=== PATIENT | male | born 1985 | race American Indian/Alaskan Native ===

== ENCOUNTER 2016-11-24 08:26 | Emergency (ER) | payer SELFPAY ==
[2016-11-24 09:19] LABS: Basophils % (Auto) 0.3 % (0.0-1.8); Eosinophils % (Auto) 0.3 % (0.0-4.3); Hemoglobin 13.3 gm/dl (11.8-15.2); Mean Corpuscular HGB Conc 33 % (32-34); Mean Corpuscular Hemoglobin 30 pg (28-32); Mean Corpuscular Volume 93 fl (84-94); Platelet Count 261 K/mm3 (140-440); Red Blood Count 4.38 M/mm3 (3.65-5.03); Red Cell Distribution Width 15.2 % (13.2-15.2); White Blood Count 11.1 K/mm3 (4.5-11.0)
[2016-11-24 09:34] LABS: Anion Gap 19 mmol/L; Blood Urea Nitrogen 15 mg/dL (9-20); Calcium 8.8 mg/dL (8.4-10.2); Carbon Dioxide 26 mmol/L (22-30); Chloride 98.1 mmol/L (98-107); Glucose 97 mg/dL (75-100); Potassium 3.8 mmol/L (3.6-5.0); Sodium 139 mmol/L (137-145)
--- NOTE | 2016-11-24 10:11 | Emergency Department Report ---
HPI - General Chief Complaint: Psych Time Seen by Provider: 11/24/16 09:51 - HPI HPI: This is a 31-year-old -[place] male who presents to the emergency department by the [facility] [employer] with complaint of suicidal ideations. The patient has been off of his medications for about 1 month as he says they're too expensive. More recently he has been hearing some voices telling him to hurt himself. Patient says that his plan would be to walk out in front of traffic but he did not want to do that so he called the police on himself. Patient says he has never been to an inpatient psych facility before. He has a past psych history of schizophrenia, bipolar disorder with psychotic tendencies. He is a tobacco smoker and admits to occasional methamphetamine use. He denies any current physical complaints. ED Past Medical Hx - Past Medical History Hx Hypertension: Yes Hx Psychiatric Treatment: Yes (schizo) - Social History Smoking Status: Never Smoker Substance Use Type: None - Medications Home Medications: Home Medications Medication Instructions Recorded Confirmed Last Taken Type ALPRAZolam [Xanax TAB] 0.25 mg PO Q8HR PRN 08/28/15 08/28/15 1 Month Ago History FLUoxetine [PROzac] 10 mg PO QDAY 08/28/15 08/28/15 1 Month Ago History risperiDONE [RisperDAL] 0.25 mg PO QDAY 08/28/15 08/28/15 1 Month Ago History ED Review of Systems ROS: Stated complaint: MH EVAL/WANTED TO COMMIT SUICIDE Other details as noted in HPI Comment: All other systems reviewed and negative Constitutional: denies: chills, fever Eyes: denies: eye pain, eye discharge, vision change ENT: denies: ear pain, throat pain Respiratory: denies: cough, shortness of breath, wheezing Cardiovascular: denies: chest pain, palpitations Gastrointestinal: denies: abdominal pain, nausea, diarrhea Genitourinary: denies: urgency, dysuria Musculoskeletal: denies: back pain, joint swelling, arthralgia Skin: denies: rash, lesions Neurological: denies: headache, weakness, paresthesias Psychiatric: depression, auditory hallucinations, suicidal thoughts. denies: visual hallucinations, homicidal thoughts Physical Exam - Physical Exam Vital Signs: Vital Signs 11/24/16 08:52 Temperature 98.9 F Pulse Rate 94 H Respiratory 18 Rate Blood Pressure 143/83 O2 Sat by Pulse 97 Oximetry Physical Exam: GENERAL: The patient is well-developed well-nourished. HEENT: Normocephalic. Atraumatic. Extraocular motions are intact. Patient has moist mucous membranes. Pupils equal reactive to light bilaterally. NECK: Supple. Trachea is midline. CHEST/LUNGS: Clear to auscultation. There is no respiratory distress noted. HEART/CARDIOVASCULAR: Regular. There is no tachycardia. There is no gallop rub or murmur. ABDOMEN: Abdomen is soft, nontender. Patient has normal bowel sounds. There is no abdominal distention. SKIN: There is no rash. There is no edema. There is no diaphoresis. NEURO: The patient is awake, alert, and oriented. The patient is cooperative. The patient has no focal neurologic deficits. The patient has normal speech. MUSCULOSKELETAL: There is no tenderness or deformity. There is no limitation range of motion. There is no evidence of acute injury. PSYCH: Patient currently calm and cooperative. Does admit to suicidal ideations. ED Course Vital Signs 11/24/16 08:52 Temperature 98.9 F Pulse Rate 94 H Respiratory 18 Rate Blood Pressure 143/83 O2 Sat by Pulse 97 Oximetry ED Medical Decision Making - Lab Data Result diagrams: 11/24/16 09:04 11/24/16 09:04 - Medical Decision Making 31-year-old male presents with suicidal ideations and some auditory hallucinations with a psychiatric history of schizophrenia, bipolar disorder and psychotic tendencies. Patient is a 1013 secondary to the suicidal ideations. Patient's labs have been unremarkable. No signs of infection, electrolytes upper maladies, renal insufficiency. No urinary tract infection. Blood alcohol level is negative. Urine drug screen should be coming back soon but the patient admits to history of methamphetamine and he is currently calm and does not appear to be acutely intoxicated. The crisis therapist team has been contacted for assistance and the patient will need inpatient psychiatric placement. Patient is medically cleared for psychiatric placement. - Differential Diagnosis different, bipolar disorder, substance abuse, schizoaffective Critical Care Time: No Critical care attestation.: If time is entered above; I have spent that time in minutes in the direct care of this critically ill patient, excluding procedure time. ED Disposition Clinical Impression: Suicidal ideations, Noncompliance with medication regimen Schizophrenia Qualifiers: Schizophrenia type: unspecified Qualified Code(s): F20.9 - Schizophrenia, unspecified Disposition: DC/TX PSY HOSP/PSY UNIT Is pt being admited?: No Condition: Stable Time of Disposition: 13:03
[2016-11-24 12:24] LABS: Urine Drugs of Abuse Note Disclamer
[2016-11-24 12:39] LABS: Bilirubin,Urine NEG (Negative); Blood,Urine MOD (Negative); Ketones,Urine 20 mg/dL (Negative); Leukocyte Esterase,Urine NEG (Negative); Mucus,Urine 1+ /HPF; Nitrite,Urine NEG (Negative); Protein,Urine <15 mg/dL mg/dL (Negative)
[2016-11-26 20:00] VITALS: BP 147/93
== END 2016-11-26 20:00 ==
LOC: EEVIPCON 08:26 → ED 08:26
DX: R45.851 Suicidal ideations (principal); F20.9 Schizophrenia, unspecified; Z91.14 Patient's other noncompliance with medication regimen; I10 Essential (primary) hypertension
CPT/HCPCS: 36415; 80048; 80307; 81001; 85025; 99285; G0480; 80320

== ENCOUNTER 2017-04-05 06:19 | Emergency (ER) | payer SELFPAY ==
[2017-04-05 06:45] VITALS: BP 132/96
[2017-04-05 07:20] LABS: Hematocrit 40.7 % (35.5-45.6); Hemoglobin 14.2 gm/dl (11.8-15.2); Mean Corpuscular HGB Conc 35 % (32-34); Mean Corpuscular Hemoglobin 32 pg (28-32); Mean Corpuscular Volume 92 fl (84-94); Platelet Count 237 K/mm3 (140-440); Red Blood Count 4.42 M/mm3 (3.65-5.03); Red Cell Distribution Width 14.3 % (13.2-15.2); White Blood Count 4.6 K/mm3 (4.5-11.0)
[2017-04-05 07:38] LABS: Anion Gap 18 mmol/L; BUN/Creatinine Ratio 6.92; Blood Urea Nitrogen 9 mg/dL (9-20); Calcium 9.3 mg/dL (8.4-10.2); Carbon Dioxide 27 mmol/L (22-30); Chloride 97.6 mmol/L (98-107); Glucose 92 mg/dL (75-100); Potassium 4.2 mmol/L (3.6-5.0); Sodium 138 mmol/L (137-145)
[2017-04-05 10:09] LABS: Basophils % (Manual) 0 % (0.0-1.8); Blastocytes % (Manual) 0 %
[2017-04-05 10:10] LABS: Diff Status Complete; RBC Morphology Normal
== END 2017-04-05 07:05 | disposition left against medical advice (07) ==
LOC: EEVIPCON 06:19 → ED 06:19
DX: R45.851 Suicidal ideations (principal); R45.850 Homicidal ideations; Z53.21 Procedure and treatment not carried out due to patient leaving prior to being seen by health care provider
CPT/HCPCS: 36415; 80048; 85007; 85025; G0480; 80320

== ENCOUNTER 2017-04-05 19:47 | Emergency (ER) | payer OTHER ==
[2017-04-05 21:06] LABS: Urine Drugs of Abuse Note Disclamer
[2017-04-05 21:15] LABS: Bilirubin,Urine NEG (Negative); Blood,Urine SM (Negative); Ketones,Urine NEG (Negative); Leukocyte Esterase,Urine NEG (Negative); Mucus,Urine FEW /HPF; Nitrite,Urine NEG (Negative); Protein,Urine <15 mg/dL mg/dL (Negative); Urobilinogen,Urine < 2.0 mg/dL (<2.0)
[2017-04-06 05:00] LABS: Basophils % (Auto) 0.5 % (0.0-1.8); Eosinophils % (Auto) 2.2 % (0.0-4.3); Hemoglobin 14.2 gm/dl (11.8-15.2); White Blood Count 5.2 K/mm3 (4.5-11.0)
[2017-04-06 05:08] LABS: Anion Gap 18 mmol/L; BUN/Creatinine Ratio 9.16; Blood Urea Nitrogen 11 mg/dL (9-20); Calcium 9.4 mg/dL (8.4-10.2); Carbon Dioxide 28 mmol/L (22-30); Chloride 93.6 mmol/L (98-107); Glucose 91 mg/dL (75-100); Sodium 136 mmol/L (137-145)
[2017-04-06 05:09] LABS: Diff Status Complete; Hematocrit 42.1 % (35.5-45.6); Mean Corpuscular HGB Conc 34 % (32-34); Mean Corpuscular Hemoglobin 31 pg (28-32); Mean Corpuscular Volume 92 fl (84-94); Platelet Count 231 K/mm3 (140-440); Red Blood Count 4.57 M/mm3 (3.65-5.03); Red Cell Distribution Width 14.1 % (13.2-15.2)
--- NOTE | 2017-04-06 05:28 | Emergency Department Report ---
HPI - General Chief Complaint: Psych Time Seen by Provider: 04/06/17 04:28 - HPI HPI: The patient is a 31-year-old male with a history of depression, home presents for evaluation of mental health. The patient reports constant and severe sadness and hopelessness for the past 24 hrs, exacerbated with drug use. He admits to suicidal ideations and a plan to run in front of a car. The patient denies fever, headache, unexplained weight loss or weight gain, heat or cold intolerance, skin, hair, or nail changes, neuro deficits, homicidal ideations, or auditory or visual hallucinations. ED Past Medical Hx - Past Medical History Previous Medical History?: Yes Hx Hypertension: Yes Hx Psychiatric Treatment: Yes (schizo) Additional medical history: schzophenia - Surgical History Past Surgical History?: No - Social History Smoking Status: Never Smoker Substance Use Type: None - Medications Home Medications: Home Medications Medication Instructions Recorded Confirmed Last Taken Type FLUoxetine [PROzac] 10 mg PO QDAY 08/28/15 11/24/16 11/23/16 History risperiDONE [RisperDAL] 0.25 mg PO QDAY 08/28/15 11/24/16 11/23/16 History ED Review of Systems ROS: Stated complaint: MED REFILL/MH Other details as noted in HPI Constitutional: denies: fever ENT: denies: throat or neck pain Respiratory: denies: cough, shortness of breath Cardiovascular: denies: chest pain Endocrine: denies unexplained weight loss or gain Gastrointestinal: denies: abdominal pain, nausea Genitourinary: denies: dysuria Musculoskeletal: denies: leg swelling Skin: denies: rash Neurological: denies: headache Hematological/Lymphatic: denies: easy bleeding or easy bruising Psych: reports sadness or hopelessness Physical Exam - Physical Exam Vital Signs: Vital Signs 04/05/17 04/06/17 04/06/17 20:22 00:36 02:00 Temperature 98.7 F 98.7 F 97.9 F Pulse Rate 101 H 86 85 Respiratory 18 18 20 Rate Blood Pressure 154/112 138/94 Blood Pressure 142/82 [Left] O2 Sat by Pulse 99 100 100 Oximetry 04/06/17 02:26 Temperature Pulse Rate Respiratory 20 Rate Blood Pressure Blood Pressure [Left] O2 Sat by Pulse 100 Oximetry Physical Exam: General: well-nourished, well-developed, no acute distress Head: Normocephalic, atraumatic Eyes: normal sclera ENT: Mucous membranes are pink and moist Neck: trachea midline, neck supple, No neck stiffness, no cervical adenopathy Respiratory: Breath sounds equal bilaterally, no wheezing, rales, or rhonchi Cardio: S1 and S2 present, no murmurs, rubs, gallops, capillary refill is brisk Abdomen: Normoactive bowel sounds, soft abdomen, no tenderness Chest WALL/Back: No tenderness to palpation of the chest wall, no CVA tenderness with percussion Musc: No pitting edema Skin: No rash Neuro: no facial drooping, normal speech Psych: Flat affect, depressed mood, poor insight, positive suicidal ideation ED Course Vital Signs 04/05/17 04/06/17 04/06/17 20:22 00:36 02:00 Temperature 98.7 F 98.7 F 97.9 F Pulse Rate 101 H 86 85 Respiratory 18 18 20 Rate Blood Pressure 154/112 138/94 Blood Pressure 142/82 [Left] O2 Sat by Pulse 99 100 100 Oximetry 04/06/17 02:26 Temperature Pulse Rate Respiratory 20 Rate Blood Pressure Blood Pressure [Left] O2 Sat by Pulse 100 Oximetry ED Medical Decision Making - Lab Data Result diagrams: 04/06/17 04:32 04/06/17 04:32 - Medical Decision Making The patient was seen and examined by myself. The patient is placed on a buttonholer and continuous pulse ox. On initial evaluation, the patient was found to be in no distress. Labs are obtained. Lab results revealed positive amphetamine use green on UDS, and otherwise labs were grossly unremarkable. The patient is medically clear. Mental health is consulted. Mental health evaluates the patient and agrees that the patient is at risk of harm to self. A 1013 is completed. The patient will be admitted to a psychiatric facility once bed placement is obtained. Critical care attestation.: If time is entered above; I have spent that time in minutes in the direct care of this critically ill patient, excluding procedure time. ED Disposition Clinical Impression: Suicidal ideations Disposition: DC/TX PSY HOSP/PSY UNIT Is pt being admited?: No Does the pt Need Aspirin: No Condition: Stable Referrals: PRIMARY CARE, [Primary Care Provider] - 3-5 Days Time of Disposition: 05:25
[2017-04-06 08:06] VITALS: BP 135/66
--- NOTE | 2017-04-06 15:01 | Consultation ---
History of Present Illness - Reason for Consult Consult date: 04/06/17 Reason for consult: Mental Health Evaluation Requesting physician: FRANK SANTANA - Chief Complaint Chief complaint: "I am paranoid" - History of Present Psychiatric Illness The patient is a 31-year-old male with a history of depression and bipolar presenting for a mental health evaluation. The patient reports constant and severe sadness and hopelessness for the past 24 hrs, exacerbated with drug use. Patient is calm and cooperative during assessment. He stated that he have been suicidal for the past 3 weeks and hearing voices after not taking his medications (risperdal/cogentin/zoloft). He stated that the voices is a bunch of rambling in ears. Patient stated that he is suicidal and would walk in ongoing traffic. He stated the SI's has been a problem for many years. Currently , patient is on probation for theft by taking and been incarcerated x 4. He stated that his life is in "shambles" and don't know how to get it together. Patient stated self medicating on recreational drugs (amphetamines). He denies HI's, VH's, or a poor appetite. Patient rate his depression 10/10, with 10 being the worse. He stated that he would like to get more rest. He denies alcohol consumption (etoh). Medications and Allergies Allergies Allergy/AdvReac Type Severity Reaction Status Date / Time No Known Allergies Allergy Verified 09/24/13 08:52 Home Medications Medication Instructions Recorded Confirmed Last Taken Type FLUoxetine [PROzac] 10 mg PO QDAY 08/28/15 11/24/16 11/23/16 History risperiDONE [RisperDAL] 0.25 mg PO QDAY 08/28/15 11/24/16 11/23/16 History Past psychiatric history - Past Medical History Past Medical History: No medical history Past Surgical History: No surgical history - past Psychiatric treatment and history Psych: Bipolar, Schizophrenia psychiatric treatment history: Multiple inpatient settings. Dad - Bipolar/Schizophrenia - Social History Social history: other (Homeless, 11th grade education) Mental Status Exam - Vital signs Last Vital Signs Temp 98.2 F 04/06/17 07:00 Pulse 92 H 04/06/17 07:00 Resp 16 04/06/17 07:00 BP 135/66 04/06/17 07:00 Pulse Ox 100 04/06/17 07:00 - Exam Narrative exam: ROS (+) psychotic, (+) depression MSE: Appearance: cooperative, calm Behavior: poor eye contact Speech: loud rate and tone Mood: "I am okay" Affect: euthymic Thought Process: circumstantial Thought Content: denies HI's and VH's, paranoid Motor Activity: ambulatory Cognition: a/ox 3 Insight: limited Judgment: limited Results Result Diagrams: 04/06/17 04:32 04/06/17 04:32 Abnormal lab results 04/06/17 04/06/17 Range/Units 04:32 04:32 Lymph % (Auto) 38.2 H (13.4-35.0) % [place] % (Auto) 14.6 H (0.0-7.3) % Sodium 136 L (137-145) mmol/L Chloride 93.6 L (98-107) mmol/L All other labs normal. Assessment and Plan Assessment and plan: Impression: MDD Severe Type with Psychotic Features, Substance Use DO ( Amphetamines). The patient is a 31-year-old male with a history of depression and bipolar presenting for a mental health evaluation. The patient reports constant and severe sadness and hopelessness for the past 24 hrs, exacerbated with drug use. Patient is calm and cooperative during assessment. He stated that he have been suicidal for the past 3 weeks and hearing voices after not taking his medications (risperdal/cogentin/zoloft). He stated that the voices is a bunch of rambling in head. Patient stated that he is suicidal and would walk in ongoing traffic. Patient is homeless. DD: R/O Bipolar, Schizoaffective DO, Substance Induced Psychosis Recommendation/Plan: Continue 1013 with placement to inpatient psy services. Remeron 15 mg PO HS for depression. Discussed possible suicidality and medication induced leticia with patient reference antidepressants. Discussed generalized coping skills with patient.
[2017-04-06] MEDS ORDERED: REMERON PO SCH (22:00)
== END 2017-04-06 20:16 | disposition home or self-care (01) ==
LOC: ED 19:47
DX: R45.851 Suicidal ideations (principal); I10 Essential (primary) hypertension; F20.9 Schizophrenia, unspecified
CPT/HCPCS: 36415; 80048; 80307; 81001; 85025; 99285; G0480; 80320

== ENCOUNTER 2017-05-07 13:39 | Emergency (ER) | payer SELFPAY ==
[2017-05-07 15:48] LABS: Bilirubin,Urine NEG (Negative); Blood,Urine NEG (Negative); Ketones,Urine NEG (Negative); Leukocyte Esterase,Urine NEG (Negative); Nitrite,Urine NEG (Negative); Protein,Urine <15 mg/dL mg/dL (Negative); Urobilinogen,Urine < 2.0 mg/dL (<2.0)
[2017-05-07] MEDS ORDERED: XYLOCAINE 1% MPF 5 mL INFILTRATI ONE (17:22)
[2017-05-07] MEDS ORDERED: ROCEPHIN IM ONE (17:22)
[2017-05-07] MEDS ORDERED: ZITHROMAX PO ONE (17:23)
[2017-05-07 17:25] LABS: Urine Drugs of Abuse Note Disclamer
[2017-05-07 18:17] VITALS: BP 132/79
--- NOTE | 2017-05-07 18:50 | Emergency Department Report ---
Entered by DAVID CROSS, acting as scribe for SOTO ENRIQUEZ NP. ED Male HPI - General Chief complaint: Urogenital-Male Stated complaint: UTI Time Seen by Provider: 05/07/17 16:17 Source: patient Mode of arrival: Ambulatory Limitations: No Limitations - History of Present Illness Initial comments: This is a 31 y/o male, nontoxic, well nourished in appearance, no acute signs of distress with a PMHx of HTN and schizophrenia presents with c/o white penile discharge that began 1 day ago. Patient states he has been taking Bactrim prescribed to his mother to avoid coming to the ED. Patient denies dysuria, urgency, frequency, swelling, lesions, rash, fever, chills, abdominal pain, nausea, vomiting, chest pain, SOB, SINGH or dizziness, numbness, and tingling. Notes last unprotected sexual intercourse was 2 days ago with an unknown partner. Notes that he is currently in a drug program and gets tested twice a week. Patient requests a prescription for Bactrim, because he took a Bactrim and he read that it gives a false positive for Benzo during urine dip stick drug tests. In the ED, patient also requests a drug test to avoid fpc sentencing and for verification that Bactrim does not show up as Benzo during drug tests. NKDA. BYRD Complaint: penile discharge (white) Onset/Timin -: days(s) Location: penis Radiation: none Severity: mild Consistency: constant Improves with: none Worsens with: none new sexual partner denies other symptoms, discharge. denies: swelling, mass, rash, urinary retention, blood in urine, dysuria, fever, nausea/vomiting, incontinence - Related Data Sexually active: Yes (unprotected 2 days ago with new partner ) Home Medications Medication Instructions Recorded Confirmed Last Taken FLUoxetine [PROzac] 10 mg PO QDAY 08/28/15 11/24/16 11/23/16 risperiDONE [RisperDAL] 0.25 mg PO QDAY 08/28/15 11/24/16 11/23/16 Allergies Allergy/AdvReac Type Severity Reaction Status Date / Time No Known Allergies Allergy Verified 09/24/13 08:52 ED Review of Systems Comment: All other systems reviewed and negative Constitutional: denies: chills, fever Eyes: denies: eye pain, eye discharge, vision change ENT: denies: ear pain, throat pain Respiratory: denies: cough, shortness of breath, wheezing Cardiovascular: denies: chest pain, palpitations Endocrine: no symptoms reported Gastrointestinal: denies: abdominal pain, nausea, vomiting, diarrhea Genitourinary: discharge (white). denies: urgency, dysuria, frequency, hematuria, testicular pain, testicular mass Musculoskeletal: denies: back pain, joint swelling, arthralgia Skin: denies: rash, lesions Neurological: denies: headache, weakness, numbness, paresthesias Psychiatric: denies: anxiety, depression Hematological/Lymphatic: denies: easy bleeding, easy bruising ED Past Medical Hx - Past Medical History Previous Medical History?: Yes Hx Hypertension: Yes Hx Psychiatric Treatment: Yes (schizo) Additional medical history: schzophenia - Surgical History Past Surgical History?: No - Social History Smoking Status: Never Smoker Substance Use Type: None - Medications Home Medications: Home Medications Medication Instructions Recorded Confirmed Last Taken Type FLUoxetine [PROzac] 10 mg PO QDAY 08/28/15 11/24/16 11/23/16 History risperiDONE [RisperDAL] 0.25 mg PO QDAY 08/28/15 11/24/16 11/23/16 History ED Physical Exam - General Limitations: No Limitations General appearance: alert, in no apparent distress - Head Head exam: Present: atraumatic, normocephalic - Eye Eye exam: Present: normal appearance, PERRL, EOMI Pupils: Present: normal accommodation - ENT ENT exam: Present: normal exam, normal orophraynx, mucous membranes moist, TM's normal bilaterally, normal external ear exam - Neck Neck exam: Present: normal inspection, full ROM. Absent: tenderness, meningismus, lymphadenopathy - Respiratory Respiratory exam: Present: normal lung sounds bilaterally. Absent: respiratory distress, wheezes, rales, rhonchi, stridor, accessory muscle use, decreased breath sounds - Cardiovascular Cardiovascular Exam: Present: regular rate, normal rhythm, normal heart sounds. Absent: bradycardia, tachycardia, irregular rhythm, systolic murmur, diastolic murmur, rubs, gallop - GI/Abdominal GI/Abdominal exam: Present: soft, normal bowel sounds. Absent: distended, tenderness, guarding, rebound, rigid - Rectal Rectal exam: Present: deferred - exam: Present: normal inspection. Absent: testicular tenderness, urethral discharge, scrotal swelling, vertical testicular lie, circumcision External exam: Present: normal external exam. Absent: erythema, swelling, lesions, lacerations, ecchymosis, bleeding - Extremities Exam Extremities exam: Present: normal inspection, full ROM, normal capillary refill. Absent: tenderness, pedal edema, joint swelling, calf tenderness - Back Exam Back exam: Present: normal inspection, full ROM. Absent: tenderness, CVA tenderness (R), CVA tenderness (L), muscle spasm, paraspinal tenderness, vertebral tenderness - Neurological Exam Neurological exam: Present: alert, oriented X3, CN II-XII intact, normal gait, reflexes normal. Absent: motor sensory deficit - Psychiatric Psychiatric exam: Present: normal affect, normal mood - Skin Skin exam: Present: warm, dry, intact. Absent: rash ED Course Vital Signs 05/07/17 14:51 Temperature 98.7 F Pulse Rate 83 Respiratory 16 Rate Blood Pressure 118/91 O2 Sat by Pulse 100 Oximetry ED Medical Decision Making - Medical Decision Making Ed course: This is a 31-year-old male that presents with concerns of gonorrhea/ chlamydia 1- patient requested to get a drug screen due to thinking taking Bactrim and believed that it may show false positive for Benzo. 2- UA, drug panel urine, and G/C has been obtained. Drug panel urine has collected with supervision of myself. 3- Patient recevied Rocephin and azithromycin for empiric treatment of gonorrhea chlamydia 4- patient was instructed to return in 5 days medical records to obtain results of gonorrhea chlamydia 5- at time time of discharge, the patient does not seem toxic or ill in appearance. No acute signs of distress noted. Patient agrees to discharge treatment plan of care. No further questions noted by the patient. ED Disposition Clinical Impression: Possible exposure to STD Disposition: DC-01 TO HOME OR SELFCARE Is pt being admited?: No Does the pt Need Aspirin: No Condition: Stable Instructions: Safe Sex (ED) Additional Instructions: Follow-up in 5 days in medical records to obtain your results of gonorrhea/ Chlamydia Referrals: JERICHO SIMONS MD [Primary Care Provider] - 3-5 Days KRYSTAL ABREU JR, MD [Staff Physician] - 3-5 Days [facility] [Outside] - 3-5 Days [facility] [Outside] - 3-5 Days Forms: Work/School Release Form(ED) This documentation as recorded by the [place] mchugh JASMINE,accurately reflects the service I personally performed and the decisions made by me,SOTO ENRIQUEZ, LUCILA.
== END 2017-05-07 18:31 | disposition home or self-care (01) ==
LOC: ED 13:39
DX: R36.9 Urethral discharge, unspecified (principal); I10 Essential (primary) hypertension; F20.9 Schizophrenia, unspecified
CPT/HCPCS: 80307; 81001; 87591; 96372; 99283; J0696